=== PATIENT | female | born 2000 | race African-American/Black ===

== ENCOUNTER 2024-04-01 07:31 | Emergency (ER) | payer MEDICAID, OTHER ==
[~2024-04-01] VITALS: Ht 149.9 cm; Wt 52.8 kg
[2024-04-01 07:58] VITALS: O2SAT 100
[2024-04-01 08:10] VITALS: BP 121/63; PULSE 65; RESP 16; TEMP 36.78072; O2SAT 100
[2024-04-01] MEDS ORDERED: ONDA4TAB50 MT (08:53)
[2024-04-01] MEDS ORDERED: IMOD MT (08:53)
== END 2024-04-01 09:45 | disposition home or self-care (01) ==
LOC: ER 08:00
DX: A08.4 Viral intestinal infection, unspecified (principal)
CPT/HCPCS: 99283